=== PATIENT | female | born 1995 | race Two or more races ===

== ENCOUNTER 2023-02-13 08:25 | Emergency (ER) | payer SELFPAY ==
[2023-02-13 09:05] VITALS: BP 121/69; PULSE 70; RESP 18; TEMP 98.6; BMI 26.4
[2023-02-13] MEDS ORDERED: ACETAMINOPHEN 500 MG TABLET (FP) PO ONE (09:26)
[2023-02-13] MEDS ORDERED: ACETAMINOPHEN 325 MG TABLET (FP) ONE (10:14)
[2023-02-13 10:47] LABS: EPI CELLS >36 /uL (0-25.1); HYALINE CASTS 2 /uL (0-3.1); PH,URINE 5.5 (5.0-8.0); URINE APPEARANCE CLOUDY; URINE BACTERIA 220 /uL (0-1359); URINE BILIRUBIN NEGATIVE (NEGATIVE); URINE COLOR DK YELLOW; URINE GLUCOSE (UA) NEGATIVE (NEGATIVE); URINE KETONE NEGATIVE (NEGATIVE); URINE LEUK ESTERASE TRACE (NEGATIVE); URINE NITRITE NEGATIVE (NEGATIVE); URINE PROTEIN 1+ (NEGATIVE); URINE RBC 41 /uL (0-23.9); URINE WBC 55 /uL (0-25.8)
[2023-02-13 10:56] LABS: YEAST NEGATIVE (NEGATIVE)
[2023-02-13 10:58] LABS: BASO % 0.3 % (0-2.0); EOS % 1.2 % (0-4.5); HEMATOCRIT 38.8 % (32.4-45.2); HEMOGLOBIN 13.1 GM/dL (10.7-15.3); LYMPH % 30.3 % (8-40); MCH 29.3 pg (25.7-33.7); MCHC 33.8 g/dl (32.0-36.0); MEAN CELL VOLUME 86.8 fl (80-96); MEAN PLT VOLUME 9.6 fl (7.5-11.1); MONO % 5.2 % (3.8-10.2); PLATELET COUNT 315 10^3/uL (134-434); RBC 4.47 M/mm3 (3.60-5.2); RDW 12.8 % (11.6-15.6); WHITE BLOOD COUNT 6.8 K/mm3 (4.0-10.0)
[2023-02-13 11:29] LABS: CHLORIDE 106 mmol/L (98-107); POTASSIUM 5.2 mmol/L (3.5-5.1); SODIUM 137 mmol/L (136-145)
[2023-02-13 11:31] LABS: ALBUMIN 3.7 g/dl (3.4-5.0); ANION GAP 6 MMOL/L (8-16); BLOOD UREA NITROGEN 9.6 mg/dL (7-18); CALCIUM 9.2 mg/dL (8.5-10.1); CO2 25 mmol/L (21-32); GLUCOSE,RANDOM 80 mg/dL (74-106)
[2023-02-13 11:33] LABS: CREATININE 0.4 mg/dL (0.55-1.3); SGOT/AST 66 U/L (15-37); SGPT/ALT 83 U/L (13-61)
[2023-02-13 11:35] LABS: BILIRUBIN,TOTAL 0.4 mg/dL (0.2-1)
[2023-02-13 11:36] LABS: ALK PHOS 86 U/L (45-117)
== END 2023-02-13 14:32 | disposition home or self-care (01) ==
LOC: JER 08:25
DX: O03.89 Complete or unspecified spontaneous abortion with other complications (principal); O26.891 Other specified pregnancy related conditions, first trimester; R10.9 Unspecified abdominal pain; Z3A.01 Less than 8 weeks gestation of pregnancy
CPT/HCPCS: 36415; 76817-TC; 80053; 81003; 84702; 85025; 86850; 86900; 86901; 87086; 99284-25